=== PATIENT | female | born 2000 | race Two or more races ===

== ENCOUNTER 2025-03-13 16:31 | Emergency (ER) | payer OTHER ==
[~2025-03-13] VITALS: Ht 162.6 cm; Wt 66.7 kg
[2025-03-13] MEDS ORDERED: ACET500T58 PO (17:09)
[2025-03-13] MEDS ORDERED: NAPR-746 PO (17:09)
[2025-03-13] MEDS ORDERED: METH-1181 PO (17:09)
[2025-03-13] MEDS: KETOROLAC TROMETH 60MG/2ML VIAL IM ONE (17:26)
[2025-03-13] MEDS ORDERED: KETOROLAC TROMETH 60MG/2ML VIAL ONE (17:28)
--- NOTE | 2025-03-13 17:28 | ED.PDOC ---
Musculoskeletal HPI Comments Patient presents for right groin strain after stubbing the wrong way. No other complaint or concern. Denies hearing a snap crack pop. Only complains of pain with ambulation. And pain is currently rated as moderate no other complaint or concern. Chief Complaint: Lower Extremity Time Seen by MD: 16:53 Reviewed Notes: Nurses Notes, Medications, Allergies Allergies: Coded Allergies: NO KNOWN ALLERGIES (Unverified , 03/13/25) Home Meds Active Scripts Methocarbamol (Methocarbamol) 500 Mg Tab, 500 MG PO QHSP PRN for 10 Days, #10 TAB 0 Refills Prov:MARY ELLEN ABEL LEAD ETL DEVELOPER 03/13/25 Acetaminophen (Acetaminophen) 500 Mg Tab, 500 MG PO Q6HP PRN for 10 Days, #40 TAB 0 Refills Prov:MARY ELLEN ABEL LEAD ETL DEVELOPER 03/13/25 Naproxen (Naproxen) 500 Mg Tab, 500 MG PO BIDPC for 10 Days, #20 TAB 0 Refills Prov:MARY ELLEN ABEL LEAD ETL DEVELOPER 03/13/25 Information Source: Patient Mode of Arrival: Ambulatory All Other Systems: Reviewed and Negative (PER HPI) Physical Exam General Appearance: No Apparent Distress, Normal HEENT: Normal ENT Inspection, Pharynx Normal, TMs Normal Neck: Full Range of Motion, Non-Tender, Normal, Normal Inspection Respiratory: Chest Non-Tender, Lungs Clear, No Accessory Muscle Use, No Respiratory Distress, Normal Breath Sounds Cardiovascular: No Edema, No JVD, No Murmur, No Gallop, Normal Peripheral Pulses, Regular Rate/Rhythm Breast Exam: Deferred Gastrointestinal: No Organomegaly, Non Tender, No Pulsatile Mass, Normal Bowel Sounds, Soft Genitalia: Deferred Pelvic: Deferred Rectal: Deferred Extremities: No calf tenderness, Normal capillary refill, Normal inspection, Normal range of motion, Non-tender, No pedal edema Musculoskeletal : Apperance: Normal Neurologic: Alert, production sorter II-XII nml as Tested, No Motor Deficits, Normal Affect, Normal Mood, No Sensory Deficits Cerebellar Function: Normal Reflexes: Normal Skin: Dry, Normal Color, Warm Lymphatic: No Adenopathy Was a procedure done? Was a procedure done?: No Differential Diagnosis EXT Differential Diagnosis: Sprain X-Ray, Labs, Meds, VS Vital Signs Date Time Temp Pulse Resp B/P (MAP) Pulse Ox O2 Delivery O2 Flow Rate FiO2 03/13/25 17:36 94 17 98 Room Air 03/13/25 17:36 98.0 94 17 115/72 (86) 98 98.0 03/13/25 16:33 98.0 96 16 109/68 97 98.0 Current Medications Medications (Trade) Dose Ordered Sig/Quan Route Start Time Stop Time Status Last Admin Ketorolac Tromethamine (Toradol Injection) 60 mg ONCE ONCE IM 03/13/25 17:15 03/13/25 17:16 DC 03/13/25 17:26 X-Ray, Labs, Meds, VS Comment ED workup: Defer imaging and lab work for outpatient follow up at this time Disposition: Discharge. Strict return precautions discussed with the patient with full understanding. Supportive care advised (rest, ice, heat, NSAIDs, stretching exercises) Massage muscles with cold pack or ice for 20 minutes 4 times per day. Usually most useful if there is swelling during the first 48 hours Heating pad on the most painful area for 20 minutes to relieve muscle spasm Sleep and the most comfortable sleeping position (usually on the side with knees bent) Light stretching, no strenuous activity, avoid frequent bending, avoid carrying heavy objects Discussed possible benefits of yoga and acupuncture ER precautions given Time of 1ST Reevaluation: 17:00 Reevaluation 1ST: Improved Patient Education/Counseling: Diagnosis, Treatment Family Education/Counseling: Diagnosis, Treatment Departure 1 Departure Time of Disposition: 17:28 Impression: Primary Impression: Strain of groin Qualified Codes: S76.212A - Strain of adductor muscle, fascia and tendon of left thigh, initial encounter Disposition: HOME / SELF CARE / HOMELESS Condition: Stable e-Prescriptions Methocarbamol (Methocarbamol) 500 Mg Tab 500 MG PO QHSP PRN for 10 Days, #10 TAB 0 Refills Prov: MARY ELLEN ABEL LEAD ETL DEVELOPER 03/13/25 Acetaminophen (Acetaminophen) 500 Mg Tab 500 MG PO Q6HP PRN for 10 Days, #40 TAB 0 Refills Prov: MARY ELLEN ABEL LEAD ETL DEVELOPER 03/13/25 Naproxen (Naproxen) 500 Mg Tab 500 MG PO BIDPC for 10 Days, #20 TAB 0 Refills Prov: MARY ELLEN ABEL LEAD ETL DEVELOPER 03/13/25 Critical Care Note Critical Care Time?: No Stability Stability form required: No Heart Score Heart Score: Heart Score Response (Comments) Value History N/A 0 EKG N/A 0 Age N/A 0 Risk Factors N/A 0 Troponin N/A 0 Total 0 MARY ELLEN ABEL NP Mar 13, 2025 17:28
[2025-03-13 17:36] VITALS: BP 115/72; PULSE 94; RESP 17; TEMP 98; O2SAT 98
== END 2025-03-13 17:41 | disposition home or self-care (01) ==
LOC: ER 16:31
DX: S39.011A Strain of muscle, fascia and tendon of abdomen, initial encounter (principal); Z79.899 Other long term (current) drug therapy; X58.XXXA Exposure to other specified factors, initial encounter; Y93.89 Activity, other specified; Y92.89 Other specified places as the place of occurrence of the external cause; Y99.8 Other external cause status
CPT/HCPCS: 96372; 99283; J1885

== ENCOUNTER 2025-05-12 21:06 | Emergency (ER) | payer MEDICAID, OTHER ==
[~2025-05-12] VITALS: Ht 165.1 cm; Wt 63.6 kg
[~2025-05-12 21:06] MED LIST: ACET500T58 PO; METH-1181 PO; NAPR-746 PO
--- NOTE | 2025-05-12 21:37 | ED.PDOC ---
History of Present Illness HPI Comments 24-year-old female who came to ER for abdominal pain. States she has been having lower abdominal pain for the past few hours, associated with nausea and vomiting. States she had this similar pain before when she was about to have her menstrual cycle. Denies any possibly of the . Patient has self-m edicated ibuprofen offered temporary relief REVIEW OF SYSTEMS: General: No fever, no chills, or fatigue HEENT: No sore throat, no earache, no congestion, no neck pain. Cardiac: No chest pain. No palpitations. Lungs: No shortness of breath, no cough. GI: (+) nausea, (+) vomiting, no diarrhea, no constipation, (+) abdominal pain : No dysuria, frequency, or urgency. No hematuria. Musculoskeletal: No joint pain , no joint swelling, no extremity edema. Skin: No rash, no itching. Neuro: No headache, no dizziness, no weakness EXAM: General: Awake, alert and oriented. No acute distress. Skin: Skin in warm, dry and intact. Appropriate color for ethnicity. HEENT: The head is normocephalic and atraumatic. Conjunctivae are clear without exudates or hemorrhage. Sclera is non-icteric. EOM are intact. No signs of nystagmus. Eyelids are normal in appearance without swelling or lesions. Oral mucosa is pink and moist Neck: The neck is supple with normal range of motion. No JVD. Cardiac: Heart rate and rhythm are normal. No murmurs, gallops, or rubs are auscultated. Respiratory: No signs of respiratory distress. Lung sounds are clear in all lobes bilaterally without rales, rhonchi, or wheezes. Abdominal: Abdomen is soft, non-tender without distention. Bowel sounds are present and normoactive in all four quadrants. Extremities: Upper and lower extremities are atraumatic in appearance without deformity or edema. Neurological: The patient is awake, alert and oriented to person, place, and time with normal speech. Speech is clear. There is no facial asymmetry. Psychiatric: Appropriate mood and affect. Good judgement and insight Chief Complaint: Abdominal Pain Time Seen by MD: 21:53 Reviewed Notes: Nurses Notes Allergies: Coded Allergies: NO KNOWN ALLERGIES (Unverified , 03/13/25) Home Meds Active Scripts Ibuprofen (Ibuprofen) 600 Mg Tab, 1 TAB PO TID PRN for 5 Days, #15 TAB Prov:GORDO SINGLETON MD 05/12/25 Methocarbamol (Methocarbamol) 500 Mg Tab, 500 MG PO QHSP PRN for 10 Days, #10 TAB 0 Refills Prov:MARY ELLEN ABEL AFFIRMATIVE ACTION SPECIALIST 03/13/25 Acetaminophen (Acetaminophen) 500 Mg Tab, 500 MG PO Q6HP PRN for 10 Days, #40 TAB 0 Refills Prov:COLTENTERRI CLAIREWilliam Salgado AFFIRMATIVE ACTION SPECIALIST 03/13/25 Naproxen (Naproxen) 500 Mg Tab, 500 MG PO BIDPC for 10 Days, #20 TAB 0 Refills Prov:MARY ELLEN ABEL AFFIRMATIVE ACTION SPECIALIST 03/13/25 Information Source: Patient Mode of Arrival: Ambulatory Past Medical History PAST MEDICAL HISTORY: Denies Surgical History: Denies all surgeries NON LICENSED NUCLEAR PLANT OPERATOR History: Denies all NON LICENSED NUCLEAR PLANT OPERATOR Hx Family History Family History: Reviewed,noncontributory to illness Social History Smoker: Non-Smoker Alcohol: Denies ETOH Use Drugs: Denies Drug Use Lives In: Home Was a procedure done? Was a procedure done?: No Differential Dx Considerations may include: Urinary tract infection, ovarian cyst, appendicitis, diverticulitis X-Ray, Labs, Meds, VS Vital Signs Date Time Temp Pulse Resp B/P (MAP) Pulse Ox O2 Delivery O2 Flow Rate FiO2 05/13/25 00:25 97 Room Air* 0 21 05/13/25 00:25 97.9 85 16 121/84 (96) 98 97.9 05/12/25 21:07 97.3 96 18 107/66 96 97.3 Lab Test 05/12/25 22:20 05/12/25 21:30 Range/Units White Blood Count 6.9 4.4-10.8 10^3/uL Red Blood Count 4.77 4.0-5.20 10^6/uL Hemoglobin 12.2 12.2-16.2 g/dL Hematocrit 37.6 36.0-46.0 % Mean Corpuscular Volume 78.9 L 80.0-100.0 fL Mean Corpuscular Hemoglobin 25.7 L 28.0-32.0 pg Mean Corpuscular Hemoglobin Concent 32.5 32.0-36.0 g/dL Red Cell Distribution Width 15.5 H 11.8-14.3 % Platelet Count 258 140-450 10^3/uL Mean Platelet Volume 8.3 6.9-10.8 fL Neutrophils (%) (Auto) 58.1 37.0-80.0 % Lymphocytes (%) (Auto) 30.9 10.0-50.0 % Monocytes (%) (Auto) 9.8 0.0-12.0 % Eosinophils (%) (Auto) 1.0 0.0-7.0 % Basophils (%) (Auto) 0.2 0.0-2.0 % Neutrophils # (Auto) 4.0 1.6-8.6 10 ^3/uL Lymphocytes # (Auto) 2.1 0.4-5.4 10 ^3/uL Monocytes # (Auto) 0.7 0-1.3 10 ^3/uL Eosinophils # (Auto) 0.1 0-0.8 10 ^3/uL Basophils # (Auto) 0 0-0.2 10 ^3/uL Nucleated Red Blood Cells 0.0 % Sodium Level 139 136-145 mmol/L Potassium Level 3.9 3.5-5.1 mmol/L Chloride Level 106 98-107 mmol/L Carbon Dioxide Level 24 20-31 mmol/L Anion Gap 9 5-15 Blood Urea Nitrogen 13 9-23 mg/dL Creatinine 0.84 0.550-1.02 mg/dL Glomerular Filtration Rate Calc 101 >90 mL/min BUN/Creatinine Ratio 15.5 10.0-20.0 Serum Glucose 81 74-106 mg/dL Calcium Level 9.1 8.7-10.4 mg/dL Urine Color Light-yellow Yellow Urine Clarity Clear Clear Urine pH 5.5 5.0-9.0 Urine Specific [place] 1.033 1.001-1.035 Urine Protein Trace H Negative Urine Ketones Trace Negative Urine Blood Negative Negative /uL Urine Nitrite Negative Negative Urine Bilirubin Negative Negative Urine Urobilinogen Normal Negative mg/dL Urine Leukocyte Esterase Negative Negative /uL Urine RBC None seen 0 - 4 /hpf Urine Microscopic WBC 1 0-5 /HPF Urine Squamous Epithelial Cells Few <5 /hpf Urine Bacteria None seen None Seen /hpf Urine Mucus Few None Seen Urine Glucose Normal Normal mg/dL Procedure: US PELVIC 05/12/2025 09:55 PM Indication: Pelvic pain Comparison: None Technique: Real-time grayscale and color images were obtained FINDINGS: UTERUS: Retroverted, measuring 7.1 x 5.0 x 5.0 cm in length. Homogeneous m yometrium without a discrete lesion. ENDOMETRIAL STRIPE: 10 mm in thickness. Homogenous echotexture. No fluid in the endometrial canal. RIGHT OVARY: 3.3 x 2.5 x 3.8 cm in length. 16.4 mL in volume. Preserved vascular flow. No suspicious lesions identified. LEFT OVARY: 3.1 x 3.2 x 2.3 cm in length. 11.9 mL in volume. Preserved vascular flow. No suspicious lesions identified. CUL-DE-SAC: No significant fluid noted. OTHER: None. IMPRESSION: 1. No acute sonographic abnormality. Time of 1ST Reevaluation: 21:52 Reevaluation 1ST: Unchanged Patient Education/Counseling: Need For Follow Up Family Education/Counseling: No Family Present SEPSIS Sepsis Screen Date sepsis recognized/suspect: May 12, 2025 Time Sepsis recognized/suspect: 2111 Recent Procedure: No On Antibiotic Therapy: No Respiratory Rate >20: No Heart Rate >90: No Temp<36 C (96.8 F) or >38.3 C: No SBP <90 or MAP <65 mmHG: No New Acute Mental Status Change: No Is the patient on CPAP, BIPAP,: No Physician Orders Pelvic (05/12/25 21:50) Vital Signs Date Time Temp Pulse Resp B/P (MAP) Pulse Ox O2 Delivery O2 Flow Rate FiO2 05/13/25 00:25 97 Room Air* 0 21 05/13/25 00:25 97.9 85 16 121/84 (96) 98 97.9 05/12/25 21:07 97.3 96 18 107/66 96 97.3 Laboratory Tests Test 05/12/25 22:20 White Blood Count 6.9 10^3/uL (4.4-10.8) Departure 1 Departure Time of Disposition: 23:52 Impression: Primary Impression: Pelvic pain Disposition: 01 HOME / SELF CARE / HOMELESS Condition: Stable Additional Instructions: ED DISCHARGE INSTRUCTIONS Instructions: Please read all instructions provided in this packet carefully. Although you have been discharged from the Emergency Department, this does not mean that you have a "clean bill of health". No definitive diagnosis for your symptoms has been made today. It is possible that you are in the process of developing a serious illness. This is why you must return to the ED without fail if any new or worsening symptoms (especially if your symptoms include chest pain, trouble breathing, abdominal pain, fever, headache, confusion, trouble seeing, or trouble walking) It is also very important that you see a primary care provider (PCP) within the next 3-5 days to follow up. If you are unable to get an appointment, return to the ED for re-evaluation. Abdominal Pain: Care Instructions Overview Abdominal pain has many possible causes. Some aren't serious and get better on their own in a few days. Others need more testing and treatment. If your pain continues or gets worse, you need to be rechecked and may need more tests to find out what is wrong. You may need surgery to correct the problem. Don't ignore new symptoms, such as fever, nausea and vomiting, urination problems, pain that gets worse, and dizziness. These may be signs of a more ser ious problem. If you are not getting better, you may need more tests or treatment. The doctor has checked you carefully, but problems can develop later. If you notice any problems or new symptoms, get medical treatment right away. Follow-up care is a burks part of your treatment and safety. Be sure to make and go to all appointments, and call your doctor if you are having problems. It's also a good idea to know your test results and keep a list of the medicines you take. How can you care for yourself at home? Rest until you feel better. To prevent dehydration, drink plenty of fluids. Choose water and other clear liquids until you feel better. If you have kidney, heart, or liver disease and have to limit fluids, talk with your doctor before you increase the amount of fluids you drink. When you feel like eating, start with small amounts. Do not have alcohol, caffeine, or spicy, hot, or high-fat foods for a day or two. Avoid anti-inflammatory medicines such as aspirin, ibuprofen (Advil, Motrin), and naproxen (Aleve). These can cause stomach upset. Talk to your doctor if you take daily aspirin for another health problem. When should you call for help? Call 911 anytime you think you may need emergency care. For example, call if: You passed out (lost consciousness). You pass maroon or very bloody stools. You vomit blood or what looks like coffee grounds. You have severe belly pain. Call your doctor now or seek immediate medical care if: Your pain gets worse, especially if it becomes focused in one area of your bel ly. You have a new or higher fever. Your stools are black and look like tar, or they have streaks of blood. You have unexpected vaginal bleeding. You have symptoms of a urinary tract infection. These may include: Pain when you urinate. Urinating more often than usual. Blood in your urine. You are dizzy or lightheaded, or you feel like you may faint. Watch closely for changes in your health, and be sure to contact your doctor if: You are not getting better as expected. Credits for Abdominal Pain: Care Instructions Current as of: April 17, 2023 Author: [employer] Staff Clinical Review Board All [employer] education is reviewed by a team that includes physicians, nurses, advanced practitioners, registered dieticians, and other healthcare profes sionals. e-Prescriptions Ibuprofen (Ibuprofen) 600 Mg Tab 1 TAB PO TID PRN for 5 Days, #15 TAB Prov: GORDO SINGLETON MD 05/12/25 Comments Lab and imaging results reviewed. Not urgently actionable. Patient well-appearing, nontoxic. Vital signs stable. Symptoms improved Advised prompt follow-up with PCP, return to the ED with any new, worsening or concerning symptoms. Critical Care Note Critical Care Time?: No Stability Stability form required: No Heart Score Heart Score: Heart Score Response (Comments) Value History N/A 0 EKG N/A 0 Age N/A 0 Risk Factors N/A 0 Troponin N/A 0 Total 0 I personally scribed for GORDO SINGLETON MD ([email or web address]) on 05/12/25 at 21:37. Electronically submitted by Iván Rollins ([employer]). I personally scribed for GORDO SINGLETON MD ([email or web address]) on 05/12/25 at 21:55. Electronically submitted by Iván Rollins ([email or web address]). I personally scribed for GORDO SINGLETON MD ([email or web address]) on 05/12/25 at 23:45. Electronically submitted by Iván Rollins ([facility]). GORDO SINGLETON MD May 12, 2025 21:37
--- NOTE | 2025-05-12 22:31 | DVH ---
Procedure: US PELVIC 05/12/2025 09:55 PM Indication: Pelvic pain Comparison: None Technique: Real-time grayscale and color images were obtained FINDINGS: UTERUS: Retroverted, measuring 7.1 x 5.0 x 5.0 cm in length. Homogeneous myometrium without a discrete lesion. ENDOMETRIAL STRIPE: 10 mm in thickness. Homogenous echotexture. No fluid in the endometrial canal. RIGHT OVARY: 3.3 x 2.5 x 3.8 cm in length. 16.4 mL in volume. Preserved vascular flow. No suspicious lesions identified. LEFT OVARY: 3.1 x 3.2 x 2.3 cm in length. 11.9 mL in volume. Preserved vascular flow. No suspicious lesions identified. CUL-DE-SAC: No significant fluid noted. OTHER: None. IMPRESSION: 1. No acute sonographic abnormality.
[2025-05-12 22:45] LABS: Mean Corpuscular Hemoglobin 25.7 pg (28.0-32.0); Nucleated Red Blood Cells % 0.0 %
[2025-05-12 22:47] LABS: Hematocrit 37.6 % (36.0-46.0); Hemoglobin 12.2 g/dL (12.2-16.2); Mean Corpuscular Volume 78.9 fL (80.0-100.0)
[2025-05-12 22:55] LABS: Chloride 106 mmol/L (98-107); Potassium 3.9 mmol/L (3.5-5.1); Sodium 139 mmol/L (136-145)
[2025-05-12 22:56] LABS: Anion Gap 9 (5-15); Calcium 9.1 mg/dL (8.7-10.4); Carbon Dioxide 24 mmol/L (20-31)
[2025-05-12 23:01] LABS: BUN/Creatinine Ratio 15.5 (10.0-20.0); Blood Urea Nitrogen 13 mg/dL (9-23); Glucose 81 mg/dL (74-106)
[2025-05-12 23:07] LABS: Urine Protein, UAD TRACE (Negative)
[2025-05-12] MEDS ORDERED: IBUP-1454 PO (23:53)
[2025-05-13] MEDS: KETOROLAC TROMETH 30 MG/ML 1ML VIAL IM ONE (00:22)
[2025-05-13 00:25] VITALS: BP 121/84; PULSE 85; RESP 16; TEMP 97.9; O2SAT 97
== END 2025-05-13 00:36 | disposition home or self-care (01) ==
LOC: ER 21:06
DX: R10.20 Pelvic and perineal pain unspecified side (principal); Z79.899 Other long term (current) drug therapy
CPT/HCPCS: 36415; 76856; 80048; 81001; 85025; 96372; 99285; J1885